=== PATIENT | female | born 1930 | race Caucasian/White ===

== ENCOUNTER 2018-04-23 14:59 | Inpatient (IN) | payer MEDICARE ==
[~2018-04-23] VITALS: Ht 157.5 cm; Wt 87.9 kg
[2018-04-23 16:27] VITALS: BP 99/38; PULSE 88; TEMP 98.3
[2018-04-23] MEDS ORDERED: PRILOSEC 20MG20 MG PO (16:40)
[2018-04-23] MEDS ORDERED: HYZAAR 25 MG-101 TAB PO (16:41)
[2018-04-23] MEDS ORDERED: EPA FISH OIL1 SGL PO (16:41)
[2018-04-23] MEDS ORDERED: TYLENOL W/COD1 UDTAB PO (16:42)
[2018-04-23] MEDS ORDERED: NIACIN 64 MG-501 TA1 PO (16:42)
[2018-04-23] MEDS ORDERED: CENTRUM SILVER1 TAB PO (16:43)
[2018-04-23] MEDS ORDERED: ASPIRIN 81M81 MG/TA2 PO (16:43)
[2018-04-23 17:36] LABS: GRAN # 20.7 (1.4-6.5); GRAN % 87.9 % (42.2-75.2); LYMPH # 1.5 (1.2-3.4); LYMPH % 6.5 % (20.0-51.0); MEAN CELL VOLUME 92 fl (80.0-100.0); MEAN CORPUSCULAR HGB CONC 32 g/dl (33.0-37.0); MEAN PLATELET VOLUME 10.2 fl (7.4-10.4); MONO % 4.2 % (1.7-9.3); PLATELET COUNT 284 K/mm3 (130-400); RED BLOOD COUNT 2.35 M/mm3 (4.10-5.30); REDCELL DISTRIBUTION WIDTH-CV 15.4 % (11.5-14.5)
[2018-04-23 17:45] LABS: CALCIUM 9.4 mg/dL (8.4-10.2); CREATININE, serum 1.53 mg/dL (0.52-1.25); MAGNESIUM 1.7 mg/dL (1.6-2.3); POTASSIUM 4.4 mmol/L (3.4-5.0)
[2018-04-23 17:52] LABS: HEMATOCRIT 21.5 % (37.0-47.0); MEAN CORPUSCULAR HEMOGLOBIN 29 pg (27.0-31.0)
[2018-04-23 17:53] LABS: HEMOGLOBIN 6.9 g/dl (12.5-16.0)
[2018-04-23 17:58] LABS: EOSINOPHIL 1 % (0-4); LYMPHOCYTE 3 % (20.0-51.0); NEUTROPHILS 92 % (42.0-75.2); PLATELET ESTIMATE NORMAL (NORMAL)
[2018-04-23 17:59] LABS: ANISOCYTOSIS 1+; HYPOCHROMIA 1+
[2018-04-23 18:19] LABS: PH 5 (5-8); SQUAMOUS EPITHELIAL 0-2 /hpf; URINE APPEARANCE Clear; URINE BACTERIA Rare /hpf; URINE BILIRUBIN Negative (NEGATIVE); URINE BLOOD Negative (NEGATIVE); URINE COLOR Straw; URINE GLUCOSE Negative (NEGATIVE); URINE KETONE Negative (NEGATIVE); URINE LEUKOCYTE ESTERASE Negative (NEGATIVE); URINE NITRATE Negative (NEGATIVE); URINE PROTEIN(semi-quant) Negative (NEGATIVE); URINE RBC 0-2 /hpf; URINE UROBILINOGEN Negative (NEGATIVE); URINE WBC 0-2 /hpf
[2018-04-23 18:29] LABS: COLLECTION METHOD CLEAN CATCH
[2018-04-23 20:46] VITALS: BP 107/42; PULSE 91; TEMP 98.3
--- NOTE | 2018-04-23 21:00 | NUR ---
Initial shift assessment done- alert/oriented- drowsy- wants to sleep- states she is tired. VSS at this time- to receive a unit of blood tonight. Denies pain. NG to LIS with light brown/pereyra clear return.
--- NOTE | 2018-04-23 22:30 | NUR ---
Unit of blood started per order- to receive just the one unit at this time- nurse at bedside for the first 15 minuites.
[2018-04-23 22:32] VITALS: BP 94/31; PULSE 92; TEMP 98.4
[2018-04-23 22:49] VITALS: BP 111/45; PULSE 87; TEMP 98.2
[2018-04-23 23:20] VITALS: BP 109/43; PULSE 87; TEMP 98.3
[2018-04-24] VITALS (14 sets, daily range): BP systolic 97–122; BP diastolic 35–67; PULSE 51–99; TEMP 98–98.9
--- NOTE | 2018-04-24 00:30 | NUR ---
Unit of blood completed- no adverse reactions
[2018-04-24 01:50] LABS: HEMATOCRIT 23.5 % (37.0-47.0)
--- NOTE | 2018-04-24 04:33 | NUR ---
Has been sleeping well all night- Incontinent of urine- cleaned up and repositioned, Repeat H&H after unit of blood was 8.0. B/P 98/52- NG to Cont low suction with about 100cc pereyra/brown return
[2018-04-24 05:41] LABS: MEAN CORPUSCULAR HGB CONC 34 g/dl (33.0-37.0); MEAN PLATELET VOLUME 9.9 fl (7.4-10.4); PLATELET COUNT 228 K/mm3 (130-400); RED BLOOD COUNT 2.49 M/mm3 (4.10-5.30); REDCELL DISTRIBUTION WIDTH-CV 15.5 % (11.5-14.5)
[2018-04-24 05:44] LABS: HEMATOCRIT 21.7 % (37.0-47.0); HEMOGLOBIN 7.4 g/dl (12.5-16.0); MEAN CELL VOLUME 87 fl (80.0-100.0); MEAN CORPUSCULAR HEMOGLOBIN 30 pg (27.0-31.0)
[2018-04-24 05:50] LABS: CALCIUM 9.1 mg/dL (8.4-10.2); CREATININE, serum 1.41 mg/dL (0.52-1.25); POTASSIUM 4.3 mmol/L (3.4-5.0)
[2018-04-24 07:42] LABS: BAND 1 % (0-10); LYMPHOCYTE 11 % (20.0-51.0); NEUTROPHILS 83 % (42.0-75.2)
[2018-04-24 07:43] LABS: ANISOCYTOSIS 1+; HYPOCHROMIA 1+
--- NOTE | 2018-04-24 08:02 | NUR ---
Report recieved from GERTRUDE Mock - IV fluid infusion rate reviewed Pt AOx4 sleeping between disturbances and hard of hearing. Appropriate and answering all orientation questions correctly. Denies pain - only NG tube discomfort and some chronic upper right shoulder positional discomfort - refuses turning, amenable to placing pillow under shoulder - discomfort resolved.
--- NOTE | 2018-04-24 08:49 | NUR ---
Report called to GERTRUDE Hoskins in Endoscopy. Physican Brake Lining Finisher As[employer] for has been in to see pt to consent for procedure, pt agrees - no questions. Grand-daughter Ana Ross called and updated on plan of care - all questions answered - she will not be in to visit pt as she is at work in [place] 0800 Vitals reviewed, and repeated by this RN. Spoke with EMPLOYER RELATIONS REPRESENTATIVE - she used cool finger that did not produce accurate measurement. Semi-Permanent sticky probe applied to forehead for accurate reading.
--- NOTE | 2018-04-24 12:12 | NUR ---
Pt off unit for Endoscopy procedure, transported by Leonarda Paz transfered with jerry
--- NOTE | 2018-04-24 12:55 | NUR ---
Report recieved from GERTRUDE Hoskins
--- NOTE | 2018-04-24 13:14 | NUR ---
Pt returned from Endoscopy, AAOx4 tolerating ice chips, VSS, weaning down O2
--- NOTE | 2018-04-24 13:30 | NUR ---
Pt more alert than before procedure. Sitting up in bed awake, following all commands, VSS, RASS=0. Continues to tolerate ice chips and sips of water.
--- NOTE | 2018-04-24 14:08 | NUR ---
Ana jerry's grand-daughter updated on phone - will visit this evening.
[2018-04-24 18:40] LABS: HEMATOCRIT 21.1 % (37.0-47.0); HEMOGLOBIN 6.9 g/dl (12.5-16.0)
--- NOTE | 2018-04-24 20:43 | NUR ---
Pt. laying in bed resting. Pt. is A&OX3, assessment complete. IV to rt. forearm patent, IV fluids infusing per orders. Pt. reports pain to arms at a 4 on pain scale. One unit of PRBC's started at this time. Vitals stable. Will remain with the pt. for the next 15 minutes.
--- NOTE | 2018-04-24 21:00 | NUR ---
First 15 minute of transfusion complete at this time. Pt. tolerating well, vitals stable. Pt. denies further needs at this time.
[2018-04-25 01:24] LABS: HEMATOCRIT 24.1 % (37.0-47.0); HEMOGLOBIN 7.8 g/dl (12.5-16.0)
[2018-04-25 03:09] VITALS: BP 113/53; PULSE 77; TEMP 98.5
--- NOTE | 2018-04-25 05:26 | NUR ---
Pt. slept well through the night. Pt. remains A&OX3. Pt. seems more perky after blood transfusion. Pt. did get up to the bedside commode one time through the night. Pt. denies pain or other needs at this time. Call light within reach.
[2018-04-25 06:56] LABS: MEAN CELL VOLUME 89 fl (80.0-100.0); MEAN CORPUSCULAR HGB CONC 33 g/dl (33.0-37.0); MEAN PLATELET VOLUME 9.7 fl (7.4-10.4); PLATELET COUNT 226 K/mm3 (130-400); RED BLOOD COUNT 2.57 M/mm3 (4.10-5.30); REDCELL DISTRIBUTION WIDTH-CV 16.8 % (11.5-14.5)
[2018-04-25 07:10] LABS: CREATININE, serum 1.18 mg/dL (0.52-1.25); POTASSIUM 3.9 mmol/L (3.4-5.0)
[2018-04-25 07:22] LABS: HEMATOCRIT 22.8 % (37.0-47.0); HEMOGLOBIN 7.5 g/dl (12.5-16.0); MEAN CORPUSCULAR HEMOGLOBIN 29 pg (27.0-31.0)
[2018-04-25 08:00] VITALS: BP 134/46; PULSE 79; TEMP 97.3
[2018-04-25 08:18] LABS: LYMPHOCYTE 14 % (20.0-51.0); NEUTROPHILS 80 % (42.0-75.2)
[2018-04-25 08:19] LABS: ANISOCYTOSIS 1+
[2018-04-25 08:21] LABS: HYPOCHROMIA 1+; PLATELET ESTIMATE NORMAL (NORMAL)
--- NOTE | 2018-04-25 08:50 | NUR ---
Patient in bed resting. Alert and oriented x 3. Shift assessment complete. Denies pain at this time. IV fluids infusing per orders. Denies further needs at this time.
--- NOTE | 2018-04-25 11:50 | NUR ---
Initial visit; Patient requested that Aerospace Medicine Physician contact . made a call to [facility] requesting a Manager Wind.
--- NOTE | 2018-04-25 11:54 | NUR ---
SW and SW student met with patient to discuss discharge planning. Patient lives alone in [place]. Her PCP is Dr Zafar and she obtains her medications from [facility] . Patient doesnt have a DPOA in place. SW assisted patient in filling one out with her son Nba Ross [phone] and granddaughter Ana Ross [phone]. SW called patients grand daughter at her request and informed her of PTs recommendation of SNF and [facility] and [facility]. She was agreeable. Patient signed choice form and it was placed on chart. SW made referrals to both locations. Will continue to follow.
[2018-04-25 12:36] VITALS: BP 130/46; PULSE 84; TEMP 97.6
--- NOTE | 2018-04-25 15:53 | NUR ---
Charley with [facility] contacted student to inform that they do not currently have any beds available, but to check back in each day. JUAN CARLOS to check with Etta Mcgraw tomorrow again.
[2018-04-25 15:55] VITALS: BP 142/53; PULSE 89; TEMP 98.2
[2018-04-25 19:30] VITALS: BP 137/49; PULSE 78; TEMP 98.5
--- NOTE | 2018-04-25 21:10 | NUR ---
Pt. laying in bed at this time. Pt. is A&OX3, assessment complete. INT to rt. forearm patent. Pt. reports abd. pain at a 5 on pain scale, gave pain meds per orders. Pt. denies further needs, call light within reach.
[2018-04-25 23:36] VITALS: BP 119/39; PULSE 79; TEMP 98.8
[2018-04-26] VITALS (10 sets, daily range): BP systolic 107–141; BP diastolic 37–54; PULSE 81–97; TEMP 97.8–99.2
--- NOTE | 2018-04-26 06:06 | NUR ---
Pt. slept well through the night. Pt. remains A&OX3. INT to rt. forearm patent. Pt. denies further needs, call light within reach.
[2018-04-26 07:12] LABS: CALCIUM 8.9 mg/dL (8.4-10.2); CREATININE, serum 1.16 mg/dL (0.52-1.25); MEAN CELL VOLUME 91 fl (80.0-100.0); MEAN CORPUSCULAR HGB CONC 32 g/dl (33.0-37.0); MEAN PLATELET VOLUME 9.9 fl (7.4-10.4); PLATELET COUNT 254 K/mm3 (130-400); POTASSIUM 4.1 mmol/L (3.4-5.0); RED BLOOD COUNT 2.36 M/mm3 (4.10-5.30); REDCELL DISTRIBUTION WIDTH-CV 17.1 % (11.5-14.5)
[2018-04-26 07:20] LABS: HEMATOCRIT 21.4 % (37.0-47.0); MEAN CORPUSCULAR HEMOGLOBIN 29 pg (27.0-31.0)
[2018-04-26 07:23] LABS: HEMOGLOBIN 6.8 g/dl (12.5-16.0)
--- NOTE | 2018-04-26 07:26 | NUR ---
Left VM with Dr. Mckenzie for critical hemoglobin of 6.8
[2018-04-26 07:49] LABS: BAND 4 % (0-10); EOSINOPHIL 2 % (0-4); LYMPHOCYTE 16 % (20.0-51.0); METAMYELOCYTE 2 % (0-0); NEUTROPHILS 69 % (42.0-75.2); NUCLEATED RED BLOOD CELL 2 (0-6)
[2018-04-26 07:50] LABS: ANISOCYTOSIS 1+; PLATELET ESTIMATE NORMAL (NORMAL)
--- NOTE | 2018-04-26 08:00 | NUR ---
Patient in bed resting. Alert and oriented x 3. Shift assessment complete. INT to right forarm patent. Denies pain at this time. Denies further needs at this time.
--- NOTE | 2018-04-26 11:35 | NUR ---
Transfusion initiated. VSS. Will remain with patient for initial 15 minutes of transfusion.
--- NOTE | 2018-04-26 15:15 | NUR ---
JUAN CARLOS student contact Charley at [facility]. Charley reports they still have no beds available. JUAN CARLOS Rowe contacted Marietta at [facility]. Marietta reports that they have not had the chance to review the patient yet, but will have an answer by tomorrow morning. Marietta will call around 10am with an answer, gave her Marlys's #
--- NOTE | 2018-04-26 16:50 | NUR ---
Marietta with [facility] contacted SW student. They have reviewed the patient and insurance. They will be here around 8:45am to meet with the patient for a screening.
--- NOTE | 2018-04-26 18:26 | NUR ---
Patient has rested intermittently through the day. Minimal needs. Family visiting at this time. Patient sitting up in recliner. Denies further needs at this time. Will report off to petal cutter.
[2018-04-26 20:20] LABS: HEMATOCRIT 25.9 % (37.0-47.0); HEMOGLOBIN 8.4 g/dl (12.5-16.0)
--- NOTE | 2018-04-26 20:30 | NUR ---
Initial shift assessment done- Up sitting in the chair-states she is feeling better today- Up to BSC with 2 assist/gait belt, did have small formed black stool, Back to bed, o2 at 2L/nc for the night- Tele on, SCD,s on, States having some abd pain 5/10- requesting a [place] at this time. Repeat H&H at this time per follow up order after blood
[2018-04-27] VITALS (275 sets, daily range): BP systolic 80–1018; BP diastolic 40–76; PULSE 78–100; TEMP 97.6–98.9; O2SAT 48–100
--- NOTE | 2018-04-27 02:00 | NUR ---
Patient calling out from room- lynn, states having abd pain and needs to get up to BSC- Up to BSC with 2 assists- very weak, had large black loose formed stool- pt states feels alot better- back to bed with 2 assists, once in bed pt states she is having stools again- incontinent of moderate amount liquid bloody stool- cleaned up,, pt states feels ok now,just wants to sleep-- vitals taken 101/53,100, 18, 98% on 2L/nc Shruti MAURO called regarding pts condition-- will get stat H&H and Type and screen stat-- frequent vitals ordered
[2018-04-27 02:35] LABS: HEMATOCRIT 19.4 % (37.0-47.0); HEMOGLOBIN 6.5 g/dl (12.5-16.0)
[2018-04-27 02:50] LABS: CALCIUM 8.6 mg/dL (8.4-10.2); CREATININE, serum 1.11 mg/dL (0.52-1.25); POTASSIUM 4.3 mmol/L (3.4-5.0)
--- NOTE | 2018-04-27 03:00 | NUR ---
Dr Sánchez called per request of Shruti MAURO- informed of pts condition- liquid bloody stool, HGB 6.5, requests for pt to be NPO, unit of blood already ordered by Shruti CRUZ
--- NOTE | 2018-04-27 05:00 | NUR ---
hGB 6.5 ,, UNIT OF BLOOD STARTED AT THIS TIME- PROTOCOL FOLLOWED- NURSE AT BEDSIDE FIRST 15 MINUTES
--- NOTE | 2018-04-27 05:18 | NUR ---
Pt incontinent of bloody liquids stool- small amount
[2018-04-27 08:18] LABS: HEMATOCRIT 22.4 % (37.0-47.0); HEMOGLOBIN 7.4 g/dl (12.5-16.0); MEAN CELL VOLUME 89 fl (80.0-100.0); MEAN CORPUSCULAR HEMOGLOBIN 29 pg (27.0-31.0); MEAN CORPUSCULAR HGB CONC 33 g/dl (33.0-37.0); MEAN PLATELET VOLUME 9.6 fl (7.4-10.4); PLATELET COUNT 219 K/mm3 (130-400); RED BLOOD COUNT 2.52 M/mm3 (4.10-5.30); REDCELL DISTRIBUTION WIDTH-CV 15.9 % (11.5-14.5)
--- NOTE | 2018-04-27 08:43 | NUR ---
Patient up to the chair this am. She was in the bathroom, passed alot of flatus, trace coffee ground stool. She voided. Patient assisted with hygiene and very thankful. Plans for EGD at 1200. Dr Mcclelland rounded this am. She remains, NPO denies nausea. Blood completed & H&H rechecked at 7.4. Patient very alert & aware. Reports feeling much better than arrival to the hospital. Compaints of a very dry cough. Will monitor.
[2018-04-27 08:47] LABS: BAND 3 % (0-10); EOSINOPHIL 1 % (0-4); LYMPHOCYTE 12 % (20.0-51.0); MYELOCYTE 1 % (0-0); NEUTROPHILS 83 % (42.0-75.2); PLATELET ESTIMATE NORMAL (NORMAL)
[2018-04-27 11:26] LABS: HEMATOCRIT 19.7 % (37.0-47.0)
[2018-04-27 11:27] LABS: HEMOGLOBIN 6.3 g/dl (12.5-16.0)
--- NOTE | 2018-04-27 11:30 | NUR ---
1125 - POWER AND RECOVERY SUPERVISOR at patient's bedside at request of Hospitalist. Patient arouses to voice, follows commands, answers questions appropriately, oriented x3, drowsy. 1135 - Called Dr. Mckenzie & provided update. Asked about starting a IV bolus. No IVF infusing currently. New orders received. 1140 - 500 ml NS bolus started per order to DK PICC. Karla RN at bedside. Pericare provided; small liquid maroon stool noted. POWER AND RECOVERY SUPERVISOR remains at bedside until Endoscopy staff will take to procedure.
--- NOTE | 2018-04-27 12:04 | NUR ---
Endoscopy, RN at bedside. Patient to Endo for procedure.
--- NOTE | 2018-04-27 12:42 | NUR ---
Patient to endo with Moose. Moose aware of patient status. Patient taken to endo on monitor. Dr. Ontiveros was called & notifed at 1145. Hospitalist team aware of patient status & ICU nurse assisted at bedside. Orders per hospitalist. Lab to get blood ready. Critical H&H was called. Student nurse working with patient today, she notifed this nurse of patient increased pain & nausea. She medicated patient with zofran & morphine after morphine orders obtained by Salima MAURO. Her instructor with her with medication administration. Salima was made aware of patient large bloody stools, Patient was provided with pericare & fresh linens 2 assist. BLoody stool x3. Vitals taken regularly & on O2. Patient more pale in color & more sleepy. Patient belongings take to ICU 6. Melonine patient family member given update on patient staus. Report to be called to ICU nurse.
--- NOTE | 2018-04-27 13:04 | NUR ---
[facility] can accept patient. Would like update tomorrow so if patient is going to dc on the weekend they will have the staff.
--- NOTE | 2018-04-27 13:45 | NUR ---
RECEIVED PROCEDURE REPORT FROM CECILIA LOREDO IN ENDO. PATIENT RECEIVED TO ICU 6. ATTACHED TO ALL MONITORS. STABLE AT THIS TIME. BEDSIDE REPORT GIVEN TO AVTAR LOREDO AND CARES HANDED OVER.
--- NOTE | 2018-04-27 14:00 | NUR ---
Report was taken from GERTRUDE Gray in ICU at 1400. GERTRUDE Garcia in Endoscopy transfered patient to ICU unit at 1340. He informed this RN that there were 2 units of blood in Blood Bank now. This RN spoke with Mignon in blood bank and she informed this RN that six more units of A- will arrive later today. H&H lab order was cancelled by lab at 1450 due to patient receiving blood transfusion at that time.
--- NOTE | 2018-04-27 14:09 | NUR ---
COMPLETED 5 PAGE TO THE BEST OF MY ABILITY.
--- NOTE | 2018-04-27 17:17 | NUR ---
This RN spoke with Nba Ross in regards to pt's condition. Nba Ross aware and would appreciate a phone call if patient will have surgery. This RN reported off to GERTRUDE Chandler in ICU and Geraldine is aware.
--- NOTE | 2018-04-27 17:23 | NUR ---
Report received from Charley LOREDO and care resumed. Pt resting at this time. PRBC's remain infusing. Will continue to follow.
--- NOTE | 2018-04-27 18:50 | NUR ---
Dr Velasquez in to see pt at this time. Update given. No new orders, will continue to follow.
[2018-04-27 19:11] LABS: HEMATOCRIT 26.2 % (37.0-47.0); HEMOGLOBIN 9.1 g/dl (12.5-16.0)
--- NOTE | 2018-04-27 19:29 | NUR ---
Report given to Ivett, care transfered at this time.
--- NOTE | 2018-04-27 19:32 | NUR ---
Received report from GERTRUDE Chandler. Patient was resting in bed. Denied any pain at this time. Will continue to monitor.
--- NOTE | 2018-04-27 22:10 | NUR ---
PATIENT IS LAYING IN BED WATCHING BASKETBALL. WILL CONTINUE TO MONITOR.
[2018-04-28] VITALS (531 sets, daily range): BP systolic 91–143; BP diastolic 45–67; PULSE 72–116; TEMP 09; O2SAT 66–100
[2018-04-28 03:18] LABS: COLLECTION METHOD CLEAN CATCH
[2018-04-28 03:23] LABS: MEAN CELL VOLUME 91 fl (80.0-100.0); MEAN CORPUSCULAR HGB CONC 34 g/dl (33.0-37.0); MEAN PLATELET VOLUME 9.9 fl (7.4-10.4); PLATELET COUNT 157 K/mm3 (130-400); RED BLOOD COUNT 2.41 M/mm3 (4.10-5.30); REDCELL DISTRIBUTION WIDTH-CV 15.3 % (11.5-14.5)
[2018-04-28 03:24] LABS: HEMOGLOBIN 7.4 g/dl (12.5-16.0); MEAN CORPUSCULAR HEMOGLOBIN 31 pg (27.0-31.0)
[2018-04-28 03:31] LABS: AMORPHOUS CRYSTAL Present /uL; MUCOUS Present /lpf; PH 5 (5-8); URINE APPEARANCE Cloudy; URINE BACTERIA Rare /hpf; URINE BILIRUBIN Negative (NEGATIVE); URINE BLOOD 3+ (NEGATIVE); URINE COLOR Yellow; URINE GLUCOSE Negative (NEGATIVE); URINE KETONE Negative (NEGATIVE); URINE LEUKOCYTE ESTERASE 2+ (NEGATIVE); URINE NITRATE Negative (NEGATIVE); URINE PROTEIN(semi-quant) 1+ (NEGATIVE); URINE UROBILINOGEN Negative (NEGATIVE); URINE WBC >50 /hpf
[2018-04-28 03:33] LABS: CALCIUM 8.1 mg/dL (8.4-10.2); CREATININE, serum 1.09 mg/dL (0.52-1.25)
--- NOTE | 2018-04-28 04:02 | NUR ---
CALLED EICU TO DISCUSS PATIENT HGB LEVELS AND BLOOD PRESSURE TRENDS. WAITING TO HEAR BACK. WILL CONTINUE TO MONITOR.
[2018-04-28 04:09] LABS: ANISOCYTOSIS 1+; BAND 10 % (0-10); LYMPHOCYTE 9 % (20.0-51.0); METAMYELOCYTE 1 % (0-0); NEUTROPHILS 78 % (42.0-75.2); PLATELET ESTIMATE NORMAL (NORMAL)
[2018-04-28 04:10] LABS: OVALOCYTES 1+; POLYCHROMASIA 1+
--- NOTE | 2018-04-28 06:19 | NUR ---
PATIENT IS LAYING IN BED WATCHING THE NEWS. PATIENT IS COMPLAINING OF ABDOMINAL PAIN. RATED IT A 2 OUT OF 10. WILL CONTINUE TO MONITOR PATIENT.
--- NOTE | 2018-04-28 06:20 | NUR ---
Patient reporting abdominal pain, states it feels like she needs to "pee". Reports she has been having this same pain since coming to the hospital; reports it is worse with coughing. Patient has been incontinent of urine during the shift so unable to measure accurate output. Bladder scanner used to check for urine retention. Less than 100 ml found. Will continue to monitor.
--- NOTE | 2018-04-28 07:05 | NUR ---
Bedside report received from GERTRUDE Smith. Care of patient assumed at this time.
--- NOTE | 2018-04-28 07:20 | NUR ---
GAVE REPORT TO GERTRUDE ROSSI. PATIENT WAS AWAKE AND RESTING.
[2018-04-28 08:17] LABS: INR 1.1 (0.8-3.0); PROTHROMBIN TIME 12.3 SECONDS (9.7-12.8)
--- NOTE | 2018-04-28 08:30 | NUR ---
Patient assessment complete. Patient is resting in bed, states she is having stomach pain. Patient's color is good, vital signs stable. No concerns at this time.
--- NOTE | 2018-04-28 11:00 | NUR ---
At patient's request, called patient's granddaughter RAMAKRISHNA Perez, to discuss upper gastrointestinal endoscopy and possible surgery. Patient states she has spoken to Dr. Ontiveros, but would like Dr. Velasquez to call her father, Nba, regarding surgery. Ana Ross gave verbal consent to this nurse and Marina Stearns RN, for endoscopy to be completed today. Will follow up with Nba regarding surgery. Called Dr. Velasquez to notify him that patient's family would like to speak with him. Phone number for patient's family provided.
[2018-04-28 11:22] LABS: HEMATOCRIT 26.5 % (37.0-47.0); HEMOGLOBIN 8.9 g/dl (12.5-16.0)
--- NOTE | 2018-04-28 12:00 | NUR ---
Patient resting in bed. Continues to have some belly pain. No acute changes. Will continue to monitor.
--- NOTE | 2018-04-28 12:06 | NUR ---
Popeye, RNs, at bedside to bring patient to endoscopy.
--- NOTE | 2018-04-28 13:20 | NUR ---
SW attended clinical rounds. Patient will get an EGD today. Patient has been accepted to [facility]. SW will fax an update.
--- NOTE | 2018-04-28 16:00 | NUR ---
Patient resting in bed at this time. States she is feeling well, denies any pain at this time. Will continue to closely monitor.
[2018-04-28 17:44] LABS: HEMOGLOBIN 5.9 g/dl (12.5-16.0)
[2018-04-28 17:45] LABS: HEMATOCRIT 17.7 % (37.0-47.0)
--- NOTE | 2018-04-28 18:20 | NUR ---
Patient states she needs to be cleaned up at 1700. This nurse along with Marina Stearns, RN, and student nurse, cleaned up patient, finding that the patient had a large bowel movement comprised of large blood clots and a large amount of free blood. ADITYA Borrego, called to request changing H&H lab test be every six hours vs every 8 hours. Notified Salima that patient's heart rate had increased while cleaning her up and had remained above 100; requested increasing rate of patient's fluid from 125 ml/hr to 200 ml/hr. Increased per Salima's verbal order. Salima states she will talk with Dr. Arias. Patient states she is having another bowel movement at 1710. Patient begins to become pale and distressed, complaining of abdominal pain. Head of patient's bed laid down. Patient on her right side to get cleaned up, begins to complain of not feeling well, states she is light headed. Oxygen placed on patient by nasal cannula, 5 L. Patient's 171 blood pressure is 101/39, heart rate 116. Patient continues to output large amounts of blood. Salima calls this nurse back at 1716 with orders to get a stat unit of blood for patient. Called blood bank. Aydee RN, at bedside with this nurse, asks patient about her wishes should her heart stop. Patient states she does not want to be kept alive, that she wants us to do nothing. I asked patient if she wanted surgery and she states she does not want surgery. 1727 blood pressure 67/31. Patient in trendelenberg at this time. Dr. Arias and Salima at bedside. Patient repeats desire to not be resuscitated and to have no intervention, witnessed by Salima, Dr. Arias, and heard by patient's family via phone at 1749. Dr. Velasquez at bedside. Blood started at this time. Protonix administered per verbal order at 1747. Patient continues to hemorrhage. Patient states she does not want additional unit of blood. Patient orientation confirmed. Dr. Arias speaking with family, patient's son states he will respect his mother's wishes. Granddaughter, Ana, at bedside, speakers to Dr. Arias and Salima. 1820 patient monitoring discontinued. Comfort care initiated for patient. Patient states she just wants to go to sleep. Will continue to monitor.
--- NOTE | 2018-04-28 19:15 | NUR ---
Bedside report given to GERTRUDE Spears.
--- NOTE | 2018-04-28 22:10 | NUR ---
Patient heard moaning and muttering occasionally and also observed moving arms up and down. Administered morphine and Ativan. Attempted to use mouth swabs but patient grimmaced and tightly closed lips when this nurse attempted. Asked family member in room if he would like staff to perform postition changes regularly. Stated not necessary to reposition if appears comfortable. Requested family to call with the call light if anything is needed. Will continue to monitor.
--- NOTE | 2018-04-29 02:00 | NUR ---
Resting comfortably in bed. Asked family member if he had any needs; nothing needed at this time. Will continue to monitor.
--- NOTE | 2018-04-29 06:10 | NUR ---
Assisted with chacho-care and performed a bed change. Will continue to monitor.
--- NOTE | 2018-04-29 07:42 | NUR ---
Bedside report received from GERTRUDE Spears. Patient is currently resting in bed, sleeping, with occasional moan when stimulated. Patient's son is here at bedside. Call light within reach. Will continue to monitor.
--- NOTE | 2018-04-29 12:00 | NUR ---
REPORT GIVEN TO ELBERT, RN
--- NOTE | 2018-04-29 12:00 | NUR ---
Bedside report recieved from Eugenie LOREDO. Patient's granddaughter in room. Patient repositioned and pericare done. Call light with in reach, appears comfortable at this time.
--- NOTE | 2018-04-29 16:49 | NUR ---
Granddaughter continues at bedside. Paitent sleeps with light snoring resps, offers no s/s discomfort at this time. Granddaughter in agreement that patient appears comfortable, no need for PRN's at this time. Denies for patient to be reposisitoned at this time.
--- NOTE | 2018-04-29 19:00 | NUR ---
Attempt to call son and let him know patient is moving rooms. Message left to return call.
--- NOTE | 2018-04-29 20:08 | NUR ---
Transferred to room 308 via bed with son at side. Olga LOREDO at bedside to accept patient.
--- NOTE | 2018-04-29 20:11 | NUR ---
PT ARRIVED FROM ICU VIA BED ACCOMPANIED BY RN AND NURSE. PT'S SON IS HERE, AND WILL BE BACK UNTIL 10PM. PT HAS EYES CLOSE AND DOES NOT WAKE UP WHEN NAME CALLED. PT'S EXTREMITIES ARE COLD TO TOUCH, SKIN PALE, RESP EVEN AND UNLABORED AT THIS TIME. CALL LIGHT WITHIN REACH.
--- NOTE | 2018-04-30 02:04 | NUR ---
PT HAS BEEN RESTING/SLEEPING WITH SOFT MOANS AT TIMES. PT DID WAKE UP AROUND 0015 AND OPENED HER EYES AND SHAKING HEAD SIDE TO SIDE, MOANING LOUDLY, GAVE PT MORPHINE FOR PAIN. PT HAS BEEN SINCE RESTING/SLEEPING WITH EYES CLOSES AND RESP EVEN AND UNLABORED. PT DOES OCCASIONALLY MOAN. PT'S EXTREMITIES ARE STILL COLD PLACED ANOTHER WARM BLANKET ON PT, ALSO, SWABBED MOUTH A FEW TIMES. PT HAS CALL LIGHT WITHIN REACH.
--- NOTE | 2018-04-30 03:15 | NUR ---
CHECKED PT FOR INCONTINENCE AND NO INCONTINENCE. PT DID OPEN HER EYES AND PT WAS ASKED IF SHE WANTED PT MEDICATION. PT STATED, "YES." ALSO, PT'S MOUTH WAS SWABBED. CALL LIGHT WITHIN REACH.
--- NOTE | 2018-04-30 10:00 | NUR ---
PRn pain medication given at this time for some moaning. The patient opens here eyes to voice but then returns to sleep. No family is present at this time. The granddaughter is to be visiting today.
--- NOTE | 2018-04-30 14:00 | NUR ---
The graddaughter is here at this time and request to take the patient's rings home with her. All rings removed per her granddaughter and taken home. The patient appears comfortable and sleeping well.
--- NOTE | 2018-04-30 19:39 | NUR ---
No change throughout the day. Report given to GERTRUDE Deutsch to resume care.
--- NOTE | 2018-04-30 19:42 | NUR ---
The granddaughter remained at the bedside for most of the afternoon playing classical music for the patient. The patient did not appear to be in any distress or pain. Report given to GERTRUDE Deutsch to resume care.
--- NOTE | 2018-04-30 20:08 | NUR ---
In room to reposition patient. Incontinent of urine. Care provided. Agreed to allow auscultation of heart and lungs. Lungs have expiratory wheezes present. Heart sounds normal. Bowels hypoactive. Finger tips light blue to purple in color, cool to touch. Generalized edema present in all extremities. All extremities cool to touch. Verbal denies pain. Opens eyes to voice. Able to answer yes/no questions. Denies needs. Call light in reach. Will closely monitor.
--- NOTE | 2018-04-30 20:35 | NUR ---
Provided patient with PRN roxanol, 5mg for verbalized moaning and pain. Unable to give pain level. Denies other needs. Call light in reach.
--- NOTE | 2018-04-30 23:10 | NUR ---
Patient restless, provided PRN ativan at this time.
--- NOTE | 2018-05-01 | NUR ---
Patient resting in bed asleep at this time
--- NOTE | 2018-05-01 02:21 | NUR ---
Patient provided with PRN roxanol for visual discomfort. Repositioned at this time.
--- NOTE | 2018-05-01 02:52 | NUR ---
Patient continues to be restless and in obvious discomfort after roxanol administration. Provided with PRN morphine IV. Will monitor.
--- NOTE | 2018-05-01 07:31 | NUR ---
Report given to GERTRUDE Rowley. Resting in bed this AM. Awakens to voice. Repositioned Q2H throughout night. Given ativan, roxanol, and morphine PRN as ordered. Resting well this AM. Call light in reach.
--- NOTE | 2018-05-01 09:15 | NUR ---
Pt lying in bed, eyes open to verbal stimuli, but does not respond to questions or name. Pt breathing even and unlabored. Pt occasionally moans. Will continue to monitor.
--- NOTE | 2018-05-01 11:25 | NUR ---
Palliative care nurse has spoken with both Nba and Ana by phone about their wishes re [facility] vs remaining here. Both verbalize desire for pt to remain here with anticipated in near future.
--- NOTE | 2018-05-01 11:27 | NUR ---
Family requests that [facility] in [facility] be contacted after . Their phone # is [phone].
--- NOTE | 2018-05-01 11:34 | NUR ---
SW attended clinical rounds. Patient is comfort care. Patient was not very verbal during rounds. Emily, [facility] care nurse, contacted Nba (son) and Ana (granddaughter) about if they would like her to go home with hospice, go to the [facility] or remain here. Emily reported they would like patient to remain here because is anticipated in the near future. Emily also reported the home choice is [facility] in [facility] ([phone]). SW will continue to follow.
--- NOTE | 2018-05-01 11:37 | NUR ---
Initial visit; Patient is on Palliative Care, Discharge Coordinator offered prayer hoping patient heard her pray.
--- NOTE | 2018-05-01 13:49 | NUR ---
Pt lying in bed eyes closed, breathing even and unlabored. No signs of pain present.
--- NOTE | 2018-05-01 14:38 | NUR ---
Pt is resting calmly, she moans softly and murmurs occasionally, but shakes her head and states 'no' when asked if she's in pain. RR slow, shallow with apneic periods, radial pulses are strong and fingers are warm, systemic edema. Chest rattles slightly. Will continue to monitor.
--- NOTE | 2018-05-01 15:06 | NUR ---
Oral care provided. Pt breathing is unlabored. She shakes her head no when asked if she was in pain. Stayed with pt for period of time, holding her hand and then left her in quiet room.
--- NOTE | 2018-05-01 15:57 | NUR ---
This RN has reviewed Tiera Chávez's documentation and agrees with findings
--- NOTE | 2018-05-01 18:41 | NUR ---
Pt lyhing in bed with eyes closed. Breathing even and unlabored. Opens eyes to verbal stimuli. Will continue to monitor.
--- NOTE | 2018-05-01 19:00 | NUR ---
Report received from GERTRUDE Mott
--- NOTE | 2018-05-01 20:08 | NUR ---
Patient resting in bed. Repositioned. Incontinent of urine. Care provided. Linens changed. Assessment complete. Generalized edema +3. Lungs clear. Heart normal. Bowels active. Pulses weak. Skin cool to touch. Mostly pale with areas blue in color. Moaning with repositioning. Will provide PRN medication to aide with comfort. Opens eyes to verbal stimuli, otherwise unresponsive. Will closely monitor.
--- NOTE | 2018-05-01 22:14 | NUR ---
Patient repositioned. Moaning and restless. Will provide PRN ativan as ordered for restlessness.
[2018-05-01 22:32] VITALS: TEMP 101.4
--- NOTE | 2018-05-02 | NUR ---
Patient repositioned at this time
--- NOTE | 2018-05-02 01:45 | NUR ---
Repositioned at this time
--- NOTE | 2018-05-02 01:50 | NUR ---
Patient moaning and appears in discomfort. PRN morphine provided at this time.
--- NOTE | 2018-05-02 04:25 | NUR ---
Patient repositioned at this time. Call light in reach.
--- NOTE | 2018-05-02 06:27 | NUR ---
Uneventful night. Provided with PRN ativan and morphine for restlessness and discomfort. Repositioned Q2H. Call light in reach.
--- NOTE | 2018-05-02 06:54 | NUR ---
Report given to GERTRUDE Luna
--- NOTE | 2018-05-02 08:54 | NUR ---
RECEIVED REPORT FROM GERTRUDE GARCIA.PATIENT RESTING IN BED.RESPONSE TO VERBAL STIMULI.APPEARS COMFORTABLE.WILL CONTINUE TO MONITOR
--- NOTE | 2018-05-02 09:17 | NUR ---
JUAN CARLOS attended clinical rounds. reports patient is stable enough to transfer to the hospice house. Emily, [facility] care nurse, will contact patient's son about if he is okay with patient going to the hospice house.
[2018-05-02] MEDS ORDERED: LORAINT PO (09:20)
[2018-05-02] MEDS ORDERED: IPRATROPIUM BROM3 M1 IH (09:20)
[2018-05-02] MEDS ORDERED: ZOFRAN ODT4 MG PO (09:20)
[2018-05-02] MEDS ORDERED: ROXANOL 20MG20 MG/ML SL (09:20)
--- NOTE | 2018-05-02 09:35 | NUR ---
patient responding to stimuli.moans and groans.pt respositioned and incontinent care provided.breathing shallow.Assessment complete.pt looks pale.3+ edema to BUE.PICC to DK.heels protectors in place.prn Roxanol given.will continue to monitor.call light in reach
--- NOTE | 2018-05-02 09:49 | NUR ---
Patient appears more comfortable at this time.oral care provided.unable to respond to verbal commands.response to stimuli.call light in reach
--- NOTE | 2018-05-02 09:57 | NUR ---
Spoke with son, Nba, by phone to advise that after physician rounding today, Shantal is still doing about the same. Dr Chairez feels at this time that it is time to transfer to [facility]osp[facility], which was the son's preference when we spoke yesterday. Nba verified that this is acceptable to him, that did not want her transfered to [place] but would much prefer the closer facility. I contacted Jessica at [facility] and faxed information packet on patient to her. Dr Murrieta will review records and make decision of whether to accept and manage her care and then they will let us know if they can accept. At this oint it is unclear if that could happen today or might need to be postponed until tomorrow. Radha JOINER was notified along with Helen in social work and primary nurse Cheryl.
--- NOTE | 2018-05-02 11:30 | NUR ---
pt repositioned.sleeping at this time.does not appear to be in pain at this time.will continue to monitor.
--- NOTE | 2018-05-02 12:16 | NUR ---
Advised Nba that [facility] cannot accept his mother until tomorrow. We will keep him advised of plans for discharge tomorrow as they develope. Nba expressed appreciation of information.
--- NOTE | 2018-05-02 13:07 | NUR ---
pt moaning and yells out "please".pt repositioned and incontinent care provided.linen changed.prn roxanol given.will continue to monitor
--- NOTE | 2018-05-02 15:24 | NUR ---
PT SLEEPING AT THIS TIME.APPEARS COMFORTABLE.WILL CONTINUE TO MONITOR
--- NOTE | 2018-05-02 16:41 | NUR ---
pt repositioned.pt moaning at this time.linens changed and incontinent care provided.prn meds given.no other needs at this time.
--- NOTE | 2018-05-02 18:17 | NUR ---
patient received morphine prn.appears to be uncomfort.moaning repeated.pt repositioned.
--- NOTE | 2018-05-02 19:50 | NUR ---
REPORT GIVEN TO GERTRUDE GARCIA
--- NOTE | 2018-05-02 20:33 | NUR ---
Patient passed as of 2019. Confirmed with Mejia Shaw RN. DPOA Ana notified at 2027. notified at 2029.
--- NOTE | 2018-05-02 20:34 | NUR ---
home notified regarding patient and family wishes of transport to [place] [facility]. [facility] [address] [id number]
--- NOTE | 2018-05-02 20:45 | NUR ---
Post mortem care provided at this time.
--- NOTE | 2018-05-02 21:01 | NUR ---
Corrine BURGESS notified of patient passing
--- NOTE | 2018-05-02 21:40 | NUR ---
Patient left with Scotty from [facility] at this time. PICC line left in place at homes request.
== END 2018-05-02 21:40 | disposition expired | DRG 378 ==
LOC: SURG 14:59 → ICU 16:02 → MEDICAL 04-29 19:50
PROVIDERS: Emergency Medicine; Family Medicine; Internal Medicine; Internal Medicine Gastroenterology; Nurse Practitioner; Nurse Practitioner Family; Physician Assistant; Surgery; ADMIT Hospitalist
PROC: 0DB68ZX Excision of Stomach, Via Natural or Artificial Opening Endoscopic, Diagnostic (ICD-10-PCS; principal; 2018-04-24 12:15)
PROC: 0W3P8ZZ Control Bleeding in Gastrointestinal Tract, Via Natural or Artificial Opening Endoscopic (ICD-10-PCS; 2018-04-27)
PROC: 0DJ08ZZ Inspection of Upper Intestinal Tract, Via Natural or Artificial Opening Endoscopic (ICD-10-PCS; 2018-04-28)
DX: K26.4 Chronic or unspecified duodenal ulcer with hemorrhage (principal); D62 Acute posthemorrhagic anemia; E87.2 Acidosis; N17.9 Acute kidney failure, unspecified; Z66 Do not resuscitate; Z51.5 Encounter for palliative care; E87.1 Hypo-osmolality and hyponatremia; N39.0 Urinary tract infection, site not specified; I12.9 Hypertensive chronic kidney disease with stage 1 through stage 4 chronic kidney disease, or unspecified chronic kidney disease; N18.3 Chronic kidney disease, stage 3 (moderate); E78.5 Hyperlipidemia, unspecified; J44.9 Chronic obstructive pulmonary disease, unspecified; E86.0 Dehydration; R73.9 Hyperglycemia, unspecified; B96.20 Unspecified Escherichia coli [E. coli] as the cause of diseases classified elsewhere; R57.1 Hypovolemic shock
CPT/HCPCS: 99222-AI; 99231-AI; 99232-AI; 99233-AI; 99238; C1751; C9113; J0744; J1170; J2060; J2270; J2370; J2405; J2704; J2765; J7030; J7050; P9016